=== PATIENT | female | born 2000 | race Caucasian/White ===

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

== ENCOUNTER 2019-02-07 00:14 | Observation (INO) | payer OTHER ==
[2019-02-07 01:59] VITALS: BP 111/63; PULSE 81
== END 2019-02-07 01:42 | disposition home or self-care (01) ==
LOC: OB 00:14
PROVIDERS: ADMIT Family Medicine; ATTEND Family Medicine
DX: Z34.83 Encounter for supervision of other normal pregnancy, third trimester (principal)
CPT/HCPCS: G0378

== ENCOUNTER 2019-03-02 12:23 | Observation (INO) | payer OTHER ==
[2019-03-02 14:54] VITALS: BP 118/56; PULSE 95; O2SAT 98
[2019-03-02] MEDS ORDERED: Lactated Ringers 1,000 ML IV SCH ×2 (15:30→16:30)
[2019-03-02 15:40] LABS: BASOPHIL % 0.1 % (0.0-0.4); Basophil (Absolute #) 0.01 (0-0.4); Eosinophil % 0.8 % (0.00-5.0); Eosinophil (Absolute #) 0.06 (0-0.5); Granulocytes % 72.2 % (36.0-66.0); Hematocrit 33.2 % (35-47); Hemoglobin 11.2 gm/dl (12.0-16.0); Lymphocyte (Absolute #) 1.36 (1.0-4.6); Lymphocytes % 18.2 % (24.0-44.0); Mean Cell Volume 93.8 fl (78-100); Mean Corpuscular Hemoglobin 31.6 pg (26-32); Mean Corpuscular Hgb Concent. 33.7 g/dl (32-36); Mean Platelet Volume 9.5 fl (6-9.5); Monocyte (Absolute #) 0.65 (0.0-1.3); Monocytes % 8.7 % (0.0-12.0); Platelet Count 231 K/mm3 (150-450); Red Blood Count 3.54 M/mm3 (4.1-5.4); White Blood Count 7.5 K/mm3 (4.0-10.5)
[2019-03-02 15:45] LABS: ALBUMIN 3.6 g/dL (3.5-5.0); ALKALINE PHOSPHATASE 154 U/L (38-126); AMYLASE 75 U/L (30-110); ANION GAP 10.7 MEQ/L (5-15); BLOOD UREA NITROGEN 7 mg/dL (7-17); CHLORIDE 110 mmol/L (98-107); Calcium 9.4 mg/dL (8.4-10.2); Carbon Dioxide 21 mmol/L (22-30); Creatinine 1 0.42 mg/dL (0.52-1.04); Glucose 94 mg/dL (74-106); LIPASE 54 U/L (23-300); Potassium 3.3 mmol/L (3.5-5.1); SGOT/AST 33 U/L (14-36); SGPT/ALT 30 U/L (0-35); SODIUM 138 mmol/L (137-145)
[2019-03-02] MEDS ORDERED: THERAGRAN MULTIVITAMIN PO SCH (17:00)
[2019-03-03] MEDS ORDERED: MULTIVITAMIN PO SCH (10:00)
[2019-03-03] MEDS ORDERED: FEOSOL 325 MG PO SCH (10:00)
== END 2019-03-02 16:42 | disposition home or self-care (01) ==
LOC: MED SURG 14:30 → UNDOADMOB 14:30 → OB 14:35 → MED SURG 14:38
PROVIDERS: ADMIT Family Medicine; ATTEND Family Medicine
DX: O26.899 Other specified pregnancy related conditions, unspecified trimester (principal); R19.7 Diarrhea, unspecified
CPT/HCPCS: 36415; 80053; 82150; 83690; 85025; G0378

== ENCOUNTER 2019-03-11 | Inpatient (IN) | payer OTHER ==
[2019-03-11] MEDS ORDERED: BRETHINE 1 MG/ML SQ PRN (20:46)
[2019-03-11 21:07] LABS: Hematocrit 35.5 % (35-47); Hemoglobin 11.8 gm/dl (12.0-16.0); Mean Cell Volume 95.2 fl (78-100); Mean Corpuscular Hemoglobin 31.6 pg (26-32); Mean Corpuscular Hgb Concent. 33.2 g/dl (32-36); Mean Platelet Volume 9.4 fl (6-9.5); Platelet Count 268 K/mm3 (150-450); Red Blood Count 3.73 M/mm3 (4.1-5.4); White Blood Count 13.1 K/mm3 (4.0-10.5)
[2019-03-11] MEDS ORDERED: Cervidil 10 MG VAG SCH (22:00)
[2019-03-11 22:48] LABS: ATYPICAL LYMPHS 1 %; BAND 1 % (0.0-2.0); Basophil 1 % (0.0-1.0); Eosinophil 1 % (0.00-3.0); Lymphocytes 15 % (24-44); Monocyte 7 % (0.0-12.0); Neutrophils 74 % (36.0-66.0); Platelet Estimate NORMAL (NORMAL); Total Cells Counted 100
[2019-03-12] MEDS ORDERED: Lactated Ringers 1,000 ML IV ONE
[2019-03-12] MEDS ORDERED: OB EPIDURAL NAROPIN/SUFENTANIL IN NACL EPIDURAL PRN
[2019-03-12] MEDS ORDERED: Ephedrine Sulfate 50 MG/ML IV PRN
[2019-03-12] MEDS ORDERED: Zofran 4 MG/2 ML VIAL IV PRN (02:05)
[2019-03-12] MEDS ORDERED: XYLOCAINE 1% HCL 20 ML MDV IJ PRN (02:05)
[2019-03-12] MEDS ORDERED: Lactated Ringers 1,000 ML IV SCH (02:30)
[2019-03-12] MEDS ORDERED: PITOCIN 30 UNITS/ LR 500 ML 500 ML IV SCH (02:30)
[2019-03-12 02:34] LABS: Amphetamine,Urine NEGATIVE (NEGATIVE); Barbiturate,Urine NEGATIVE (NEGATIVE); Benzodiazepine,Urine NEGATIVE (NEGATIVE); Cocaine,Urine NEGATIVE (NEGATIVE); Methadone,Urine NEGATIVE (NEGATIVE); Opiate,Urine NEGATIVE (NEGATIVE); PCP,Urine NEGATIVE (NEGATIVE); THC,Urine NEGATIVE (NEGATIVE)
[2019-03-12 05:07] VITALS: O2SAT 99
[2019-03-12] MEDS ORDERED: Mylicon 80MG PO PRN (08:50)
[2019-03-12] MEDS ORDERED: Dulcolax 10 MG SUPP PR PRN (08:50)
[2019-03-12] MEDS ORDERED: Dermoplast Spray TP PRN (08:50)
[2019-03-12] MEDS ORDERED: Anucort-HC SUPPOSITORY PR PRN (08:50)
[2019-03-12] MEDS ORDERED: LANSINOH 40 GM TOP PRN (08:50)
[2019-03-12] MEDS ORDERED: CORTISONE 1% CREAM TP PRN (08:50)
[2019-03-12] MEDS ORDERED: NORCO 5/325 MG PO PRN (08:50)
[2019-03-12] MEDS ORDERED: Ambien 10 MG PO PRN (10:12)
[2019-03-12 10:36] LABS: ABO TYPING O; ANTIBODY SCREEN NEGATIVE (NEGATIVE); RH TYPING NEGATIVE
[2019-03-12] MEDS: TUCKS TP PRN (11:12)
[2019-03-12] MEDS: FERREX 150 PO SCH (11:13)
[2019-03-12] MEDS: Colace 100 MG PO SCH (11:13)
[2019-03-12] MEDS ORDERED: Rhogam Plus 300 MCG IM ONE (12:00)
[2019-03-12 13:07] LABS: Appearance CLEAR (CLEAR); Bilirubin NEGATIVE (NEGATIVE); Blood MODERATE Ery/ul (0-5); Glucose NEGATIVE (NEGATIVE); Hyaline Casts 0-2 /LPF (0-2); Ketones SMALL (NEGATIVE); Leukocyte Esterase NEGATIVE (NEGATIVE); Mucus SLIGHT /HPF (NEGATIVE); Nitrite NEGATIVE (NEGATIVE); Protein,Urine Dip 30 (Negative); RBC >101 /HPF (0-2); Specific Gravity 1.025 (1.005-1.025); Urobilinogen NEGATIVE mg/dL (0-1)
[2019-03-12] MEDS: MOTRIN 400 MG PO PRN (19:11)
[2019-03-13 05:55] LABS: BASOPHIL % 0.1 % (0.0-0.4); Basophil (Absolute #) 0.02 (0-0.4); Eosinophil % 0.9 % (0.00-5.0); Eosinophil (Absolute #) 0.12 (0-0.5); Granulocyte Absolute (ANC) 8.99 (1.4-6.9); Granulocytes % 67.1 % (36.0-66.0); Hematocrit 30.8 % (35-47); Hemoglobin 10.2 gm/dl (12.0-16.0); Lymphocyte (Absolute #) 2.94 (1.0-4.6); Lymphocytes % 21.9 % (24.0-44.0); Mean Cell Volume 96.3 fl (78-100); Mean Corpuscular Hgb Concent. 33.1 g/dl (32-36); Mean Platelet Volume 9.5 fl (6-9.5); Monocyte (Absolute #) 1.34 (0.0-1.3); Platelet Count 219 K/mm3 (150-450); Red Cell Distribution Width 13.1 % (11.5-14.0); White Blood Count 13.4 K/mm3 (4.0-10.5)
[2019-03-13 05:58] LABS: Mean Corpuscular Hemoglobin 31.8 pg (26-32)
[2019-03-13] MEDS: Colace 100 MG PO SCH ×2 (09:24→21:43)
[2019-03-13] MEDS: TYLENOL EXTRA STRENGTH 500 MG PO PRN ×2 (09:24→21:43)
[2019-03-13] MEDS: FERREX 150 PO SCH (09:27)
[2019-03-13] MEDS: MOTRIN 400 MG PO PRN (18:07)
[2019-03-14] MEDS: TUCKS TP PRN (00:02)
[2019-03-14] MEDS: MOTRIN 400 MG PO PRN (04:33)
--- NOTE | 2019-03-14 09:41 | PCM.DS ---
Discharge Summary Date of Admission: 03/12/19 00:00 Admitting Physician: ZEE PURVIS Consults: Consults on Case 03/12/19 00:01 Notify Anesthesia Provider PRN Primary Care Provider: ZEE PURVIS Allergies Allergies No Known Drug Allergies Allergy (Unverified 06/14/15 18:28) Hospital Summary - Hospital Course Hospital Course: had term delivery via with Dr Purvis, no complications. , mild lochia and pain controlled with tylenol/ibuprofen. - Vitals & Intake/Output Vital Signs: Vital Signs Temperature 98.6 F 03/14/19 01:26 Pulse Rate 89 03/14/19 01:26 Respiratory Rate 18 03/14/19 01:26 Blood Pressure 132/86 03/14/19 01:26 O2 Sat by Pulse Oximetry 99 03/14/19 01:26 Intake & Output: Intake & Output 03/11/19 03/12/19 03/13/19 03/14/19 11:59 11:59 11:59 11:59 Intake Total 2800 1200 2050 Output Total 360 Balance 2440 1200 2050 Weight 91.626 kg - Lab Result Diagrams: 03/13/19 05:48 Micro Results-Entire Visit: Microbiology 03/12/19 02:10 Urine Culture - Preliminary Catherized NO GROWTH TO DATE 03/12/19 03:12 Urine Culture - Final Urine, Indwelling Catheter NO GROWTH - Procedures and Test Procedures and Tests throughout Hospitalization: Therapy Orders & Screens 03/11/19 21:53 Smoking Cessation Education ONCE Comment: Diagnosis: induction Smoking Status: Current every day smoker How long have you smoked: "5 years" Have you smoked in the past 12 months: Yes Approximately how many cigarettes per day: 1ppd Do you dip or chew tobacco: No 03/12/19 06:06 Standby Routine Comment: Diagnosis: induction Discharge Exam General Appearance: no apparent distress, alert Skin Exam: normal color, warm, dry Respiratory Exam: normal breath sounds, lungs clear, No respiratory distress Cardiovascular Exam: regular rate/rhythm, normal heart sounds Gastrointestinal/Abdomen Exam: soft, No tenderness, No mass Extremity Exam: normal inspection, normal range of motion Final Diagnosis/Problem List - Final Discharge Diagnosis/Problem (1) Vaginal delivery Current Visit: Yes Status: Acute Code(s): O80 - ENCOUNTER FOR FULL-TERM UNCOMPLICATED DELIVERY (2) () Current Visit: Yes Status: Acute Code(s): Z78.9 - OTHER SPECIFIED HEALTH STATUS - Discharge Disposition: Home, Self-Care Condition: Stable Prescriptions: No Action Multivitamin [Flintstones] 1 each PO DAILY Ferrous Sulfate 325 mg [Feosol 325 mg] 325 mg PO QAM Additional Instructions: FOLLOW UP TO OB UNIT 2 DAYS AFTER DISCHARGE ON Saturday03/16/19 FOR CHECK UP OF YOU AND YOUR . MAKE A FOLLOW UP APPOINTMENT FOR YOURSELF FOR 4-6 WEEKS AFTER DELIVERY. Follow up with: ZEE PURVIS [Primary Care Provider] - 1 Week Forms: OB Discharge Instructions
[2019-03-14 12:25] VITALS: BP 114/59; PULSE 63
== END 2019-03-14 11:10 | disposition home or self-care (01) | DRG 807 ==
LOC: OB → OBSVTOIN 03-12
PROVIDERS: ADMIT Family Medicine; ATTEND Family Medicine
PROC: 10E0XZZ Delivery of Products of Conception, External Approach (ICD-10-PCS; principal; 2019-03-12)
DX: O70.0 First degree perineal laceration during delivery (principal); Z37.0 Single live birth; Z3A.40 40 weeks gestation of pregnancy
CPT/HCPCS: 36415; 80307; 81001; 83986; 84439; 84443; 84481; 85025; 85461; 86850; 86900; 86901; 87086; 94799; G0378; J2590; J2790; J2795; A9270-GY

== ENCOUNTER 2020-04-20 16:13 | Inpatient (IN) | payer OTHER ==
[2020-04-20] MEDS ORDERED: BRETHINE 1 MG/ML SQ PRN (23:16)
[2020-04-21] MEDS ORDERED: XYLOCAINE 1% HCL 20 ML MDV IJ PRN (00:40)
[2020-04-21] MEDS ORDERED: Zofran 4 MG/2 ML VIAL IV PRN (00:40)
[2020-04-21] MEDS ORDERED: TYLENOL EXTRA STRENGTH 500 MG PO PRN (00:40)
[2020-04-21] MEDS ORDERED: PITOCIN 30 UNITS/ LR 500 ML 500 ML IV SCH (01:00)
[2020-04-21 01:02] LABS: Amphetamine,Urine NEGATIVE (NEGATIVE); Barbiturate,Urine NEGATIVE (NEGATIVE); Benzodiazepine,Urine NEGATIVE (NEGATIVE); Cocaine,Urine NEGATIVE (NEGATIVE); Methadone,Urine NEGATIVE (NEGATIVE); Opiate,Urine NEGATIVE (NEGATIVE); PCP,Urine NEGATIVE (NEGATIVE); THC,Urine NEGATIVE (NEGATIVE)
[2020-04-21 01:24] LABS: Absolute Neutrophil Ct (ANC) 3.12 (1.4-6.9); BASOPHIL % 0.2 % (0.0-0.4); Basophil (Absolute #) 0.01 (0-0.4); Eosinophil % 1.4 % (0.00-5.0); Eosinophil (Absolute #) 0.08 (0-0.5); Hematocrit 33.1 % (35-47); Hemoglobin 11.4 gm/dl (12.0-16.0); Lymphocyte (Absolute #) 1.79 (1.0-4.6); Lymphocytes % 31.7 % (24.0-44.0); Mean Cell Volume 92.2 fl (78-100); Mean Corpuscular Hemoglobin 31.8 pg (26-32); Mean Corpuscular Hgb Concent. 34.4 g/dl (32-36); Mean Platelet Volume 9.5 fl (7.5-11.0); Monocyte (Absolute #) 0.65 (0.0-1.3); Monocytes % 11.5 % (0.0-12.0); Neutrophil % 55.2 % (36.0-66.0); Platelet Count 165 K/mm3 (150-450); Red Blood Count 3.59 M/mm3 (4.1-5.4); Red Cell Distribution Width 12.9 % (11.5-14.0); White Blood Count 5.7 K/mm3 (4.0-10.5)
[2020-04-21] MEDS: PTU 50MG PO SCH (10:19)
[2020-04-21] MEDS: Lactated Ringers 1,000 ML IV SCH ×2 (13:22→18:45)
[2020-04-21] MEDS ORDERED: Ephedrine Sulfate 50 MG/ML IV PRN (18:07)
[2020-04-21] MEDS ORDERED: OB EPIDURAL NAROPIN/SUFENTANIL IN NACL EPIDURAL PRN (18:07)
[2020-04-21 19:40] VITALS: O2SAT 98
[2020-04-21] MEDS ORDERED: Cervidil 10 MG VAG SCH (22:00)
[2020-04-22] MEDS ORDERED: Dermoplast Spray TP PRN (01:58)
[2020-04-22] MEDS ORDERED: Dulcolax 10 MG SUPP PR PRN (01:58)
[2020-04-22] MEDS ORDERED: NORCO 5/325 MG PO PRN (01:58)
[2020-04-22] MEDS ORDERED: Anucort-HC SUPPOSITORY PR PRN (01:58)
[2020-04-22] MEDS ORDERED: CORTISONE 1% CREAM TP PRN (01:58)
[2020-04-22] MEDS ORDERED: TYLENOL EXTRA STRENGTH 500 MG PO PRN (01:58)
[2020-04-22] MEDS ORDERED: Mylicon 80MG PO PRN (01:58)
[2020-04-22] MEDS ORDERED: Ambien 10 MG PO PRN (01:58)
[2020-04-22] MEDS ORDERED: LANSINOH 40 GM TOP PRN (01:58)
[2020-04-22] MEDS ORDERED: TUCKS TP PRN (01:58)
[2020-04-22 03:58] LABS: ABO TYPING O; ANTIBODY SCREEN NEGATIVE (NEGATIVE); RH TYPING NEGATIVE
[2020-04-22] MEDS: Colace 100 MG PO SCH (09:02)
[2020-04-22] MEDS: FERREX 150 PO SCH (09:02)
[2020-04-22] MEDS: PTU 50MG PO SCH (09:02)
[2020-04-22] MEDS: MOTRIN 400 MG PO PRN ×2 (09:03→18:22)
[2020-04-22] MEDS ORDERED: Rhogam Plus 300 MCG IM ONE (10:00)
[2020-04-22 13:04] LABS: BASOPHIL % 0.1 % (0.0-0.4); Basophil (Absolute #) 0.01 (0-0.4); Eosinophil % 1.2 % (0.00-5.0); Eosinophil (Absolute #) 0.08 (0-0.5); Hematocrit 34.8 % (35-47); Hemoglobin 11.7 gm/dl (12.0-16.0); Lymphocyte (Absolute #) 1.65 (1.0-4.6); Lymphocytes % 23.9 % (24.0-44.0); Mean Cell Volume 92.3 fl (78-100); Mean Corpuscular Hgb Concent. 33.6 g/dl (32-36); Mean Platelet Volume 9.7 fl (7.5-11.0); Monocyte (Absolute #) 0.46 (0.0-1.3); Monocytes % 6.7 % (0.0-12.0); Neutrophil % 68.1 % (36.0-66.0); Platelet Count 170 K/mm3 (150-450); Red Blood Count 3.77 M/mm3 (4.1-5.4); Red Cell Distribution Width 12.9 % (11.5-14.0); White Blood Count 6.9 K/mm3 (4.0-10.5)
[2020-04-23] MEDS: Colace 100 MG PO SCH ×2 (00:41→10:05)
[2020-04-23] MEDS: MOTRIN 400 MG PO PRN (07:16)
--- NOTE | 2020-04-23 09:20 | PCM.DS ---
Discharge Summary Date of Admission: 04/21/20 18:10 Admitting Physician: ZEE BERNAL Primary Care Provider: ZEE BERANL Allergies Allergies No Known Drug Allergies Allergy (Verified 04/21/20 00:42) Hospital Summary - Hospital Course Hospital Course: patient had at 37 wks for mild pre-eclampsia. had with no complications , breast/bottle feeding. has been normotensive during stay and . feels well and requesting to go home PPD #1 due to 1 year old daughter at home - Vitals & Intake/Output Vital Signs: Vital Signs Temperature 98.3 F 04/23/20 02:00 Pulse Rate 66 04/23/20 02:00 Respiratory Rate 20 04/23/20 02:00 Blood Pressure 128/69 04/23/20 02:00 O2 Sat by Pulse Oximetry 98 04/23/20 02:00 Intake & Output: Intake & Output 04/20/20 04/21/20 04/22/20 04/23/20 11:59 11:59 11:59 11:59 Intake Total 1120 4800 Output Total 360 201 Balance -586 545 8423 Weight 94.347 kg - Lab Result Diagrams: 04/22/20 12:40 Lab Results-Last 24 Hrs: Lab Results-Last 24 Hours 04/21/20 04/22/20 04/22/20 Range/Units 00:48 01:45 12:40 WBC 6.9 (4.0-10.5) K/mm3 RBC 3.77 L (4.1-5.4) M/mm3 Hgb 11.7 L (12.0-16.0) gm/dl Hct 34.8 L (35-47) % MCV 92.3 (78-100) fl MCH 31.0 (26-32) pg MCHC 33.6 (32-36) g/dl RDW 12.9 (11.5-14.0) % Plt Count 170 (150-450) K/mm3 MPV 9.7 (7.5-11.0) fl Gran % 68.1 H (36.0-66.0) % Eos # (Auto) 0.08 (0-0.5) Absolute Lymphs (auto) 1.65 (1.0-4.6) Absolute Monos (auto) 0.46 (0.0-1.3) Lymphocytes % 23.9 L (24.0-44.0) % Monocytes % 6.7 (0.0-12.0) % Eosinophils % 1.2 (0.00-5.0) % Basophils % 0.1 (0.0-0.4) % Absolute Granulocytes 4.70 (1.4-6.9) Basophils # 0.01 (0-0.4) Hep Bs Antigen Non Reactive (Non Reactive) Screen SEE SEPARATE REPORT Micro Results-Entire Visit: Microbiology 04/21/20 00:08 Urine Culture - Final Catherized NO GROWTH Discharge Exam General Appearance: no apparent distress, alert Eye Exam: PERRL, EOMI, eyes nml inspection Respiratory Exam: normal breath sounds, lungs clear, No respiratory distress Cardiovascular Exam: regular rate/rhythm, normal heart sounds Gastrointestinal/Abdomen Exam: soft, No tenderness, No mass Extremity Exam: normal inspection, normal range of motion Final Diagnosis/Problem List - Final Discharge Diagnosis/Problem (1) Vaginal delivery Current Visit: No Status: Acute Code(s): O80 - ENCOUNTER FOR FULL-TERM UNCOMPLICATED DELIVERY (2) () Current Visit: No Status: Acute Code(s): Z78.9 - OTHER SPECIFIED HEALTH STATUS - Discharge Disposition: Home, Self-Care Condition: Stable Prescriptions: Continue Multivitamin [Flintstones] 1 each PO DAILY Propylthiouracil 50 mg [Ptu 50Mg] 1 tab PO DAILY Discontinued Ferrous Sulfate 325 mg [Feosol 325 mg] 325 mg PO QAM Follow up with: ZEE BERNAL [Primary Care Provider] - 1 Week
[2020-04-23] MEDS: PTU 50MG PO SCH (10:05)
[2020-04-23] MEDS: FERREX 150 PO SCH (10:05)
[2020-04-23 12:29] VITALS: BP 136/63; PULSE 69
== END 2020-04-23 15:10 | disposition home or self-care (01) | DRG 807 ==
LOC: INTOOBSV 18:01 → OB 18:01 → OBSVTOIN 18:01 → OB 18:10 → INTOOBSV 18:10 → OBSVTOIN 18:10
PROVIDERS: ADMIT Family Medicine; ATTEND Family Medicine
PROC: 10E0XZZ Delivery of Products of Conception, External Approach (ICD-10-PCS; principal; 2020-04-22)
DX: O14.04 Mild to moderate pre-eclampsia, complicating childbirth (principal); Z37.0 Single live birth; Z3A.37 37 weeks gestation of pregnancy; E05.90 Thyrotoxicosis, unspecified without thyrotoxic crisis or storm; D64.9 Anemia, unspecified
CPT/HCPCS: 36415; 80307; 85025; 85461; 86850; 86900; 86901; 87086; 87340; 96372; G0378; J2590; J2790; J2795; A9270-GY